=== PATIENT | female | born 1975 | race Caucasian/White ===

== ENCOUNTER → 2024-09-22 | Outpatient (CLI) | payer OTHER ==
[~2024-09-22] MED LIST: ROPI.25 PO
== END ==
LOC: LAB SHORT 09:50 → LAB 09:50
DX: M79.10 Myalgia, unspecified site (principal)
CPT/HCPCS: 82550

== ENCOUNTER → 2024-12-02 | Outpatient (CLI) | payer OTHER ==
[2024-12-02 18:42] LABS: BASOPHILS ABSOLUTE AUTO 0.05 K/mm3 (0.00-0.23); BASOPHILS PERCENT AUTO 1 % (0-2); EOSINOPHILS ABSOLUTE AUTO 0.08 K/mm3 (0.00-0.68); EOSINOPHILS PERCENT AUTO 1 % (0-6); Hematocrit 44.8 % (33.0-51.0); Hemoglobin 15.7 g/dL (11.5-16.0); IMMATURE GRAN ABSOLUTE AUTO 0.03 K/mm3 (0.00-0.10); IMMATURE GRAN PERCENT AUTO 0 % (0-1); LYMPHOCYTES ABSOLUTE AUTO 2.64 K/mm3 (0.84-5.20); LYMPHOCYTES PERCENT AUTO 25 % (21-46); MONOCYTES ABSOLUTE AUTO 0.49 K/mm3 (0.16-1.47); MONOCYTES PERCENT AUTO 5 % (4-13); Mean Corpuscular HGB 28.1 pg (26.0-34.0); Mean Corpuscular Volume 80 fL (80-100); Mean Platelet Volume 10.4 fL (9.1-12.4); NEUTROPHILS ABSOLUTE AUTO 7.16 K/mm3 (1.96-9.15); NEUTROPHILS PERCENT AUTO 68 % (41-73); Platelet Count 269 K/mm3 (150-400); RDW Coefficient Variation 12.5 % (11.7-14.2); RDW Standard Deviation 35.9 fL (35.1-46.3); Red Blood Cell Count 5.59 M/mm3 (3.80-5.20); White Blood Cell Count 10.45 K/mm3 (4.00-11.30)
== END ==
LOC: LAB SHORT 17:04
PROVIDERS: Hospitalist
DX: R10.32 Left lower quadrant pain (principal)
CPT/HCPCS: 85025; 85651

== ENCOUNTER → 2025-04-06 | Outpatient (CLI) | payer OTHER ==
[2025-04-06 21:20] LABS: Creatinine, Urine Random 22.7 mg/dL (27.00-270.00)
[2025-04-06 21:22] LABS: Microalb/Creat Ratio UR, Rand 31.498 mg/g (0.000-30.000); Microalbumin, Random Urine 7.15 mg/L (0.000-20.000)
== END ==
LOC: LAB 18:29 → LAB SHORT 18:29
PROVIDERS: Physician Assistant
DX: E11.65 Type 2 diabetes mellitus with hyperglycemia (principal); Z79.4 Long term (current) use of insulin
CPT/HCPCS: 82043; 82570